=== PATIENT | male | born 1995 | race African-American/Black ===

== ENCOUNTER 2017-10-10 11:54 | Emergency (ER) | payer OTHER ==
[~2017-10-10] VITALS: Ht 177.8 cm; Wt 70.3 kg
[2017-10-10 12:27] LABS: APPEARANCE CLEAR ((CLEAR)); BILIRUBIN NEGATIVE; BLOOD NEGATIVE; COLOR YELLOW ((YELLOW)); GLUCOSE (STRIP) NEGATIVE; KETONES 5; LEUKOCYTES NEGATIVE; NITRITE NEGATIVE; PROTEIN (STRIP) 30; SPECIFIC GRAVITY 1.032 (1.000-1.030); UCUL ADDED? NO; UROBILINOGEN 0.2 MG/DL (0.2-1.0)
[2017-10-10 12:41] LABS: HEMATOCRIT 45.9 % (38.0-50.0); HEMOGLOBIN 15.5 G/DL (12.5-16.6); MCH 31.8 PG (29.0-34.0); MCHC 33.8 G/DL (30.0-36.0); MCV 94.3 FL (86-99); PLATELET COUNT 184 K/uL (156-360); RBC DIS.WIDTH-CV 11.9 % (11.8-14.6); RBC DIS.WIDTH-SD 41.1 % (39-53); RED BLOOD COUNT 4.87 M/uL (4.00-5.50); WHITE BLOOD COUNT 4.9 K/uL (4.1-10.2)
[2017-10-10 12:58] LABS: CHLORIDE 105 mEq/L (99-109); POTASSIUM 4.5 mEq/L (3.7-5.4); SODIUM 143 mEq/L (136-147)
[2017-10-10 12:59] LABS: GLUCOSE 97 mg/dL (70-99)
[2017-10-10 13:04] LABS: UREA NITROGEN (BUN) 12 mg/dL (9-23)
[2017-10-10 13:08] LABS: GFR ESTIMATE (CALCULATED) > 59 mL/min/ (58.99-99999)
[2017-10-10 13:13] LABS: ALBUMIN 5.1 g/dL (3.2-4.8)
[2017-10-10 13:16] LABS: TOTAL PROTEIN 8.2 g/dL (6.4-8.3)
[2017-10-10 13:18] LABS: TOTAL BILIRUBIN 0.9 mg/dL (0.0-1.0)
[2017-10-10 13:19] LABS: ALKALINE PHOSPHATASE 89 IU/L (3-129)
[2017-10-10 13:21] LABS: AST (GOT) 17 IU/L (2-34); DIRECT BILIRUBIN 0.3 mg/dL (0.0-0.3)
[2017-10-10 13:22] LABS: ALT (GPT) 18 IU/L (3-49); LIPASE 13 U/L (1.0-51.0)
[2017-10-10] MEDS ORDERED: OMEPRAZOLE20 MG PO (13:50)
[2017-10-10] MEDS ORDERED: ZOFRAN ODT4 MG PO (14:33)
[2017-10-10] MEDS ORDERED: BENTYL10 MG PO (14:33)
[2017-10-10 15:05] VITALS: BP 129/78
== END 2017-10-10 15:00 | disposition home or self-care (01) ==
LOC: EME 11:54
DX: R10.84 Generalized abdominal pain (principal); R11.2 Nausea with vomiting, unspecified; F17.200 Nicotine dependence, unspecified, uncomplicated; Z87.19 Personal history of other diseases of the digestive system
CPT/HCPCS: 74177; 80048; 80076; 81003; 83690; 85027; 99281; 99285; J2405; J7030